=== PATIENT | female | born 1985 | race Caucasian/White ===

== ENCOUNTER 2018-02-20 06:25 | Day surgery (SDC) | payer MEDICAID ==
[2018-02-20] MEDS ORDERED: DOXYCYCLINE HYCLATE 100 MG in DEXTROSE 5%-WATER 250 ML IV ONE (06:45)
[2018-02-20 07:13] LABS: ABSOLUTE BASOPHILS # (AUTO) 0.1 10^3/uL (0.0-0.2); ABSOLUTE EOSINOPHILS # (AUTO) 0.3 10^3/uL (0.0-0.6); ABSOLUTE LYMPHOCYTES (AUTO) 1.9 10^3/uL (0.5-4.7); ABSOLUTE MONOCYTES (AUTO) 0.4 10^3/uL (0.1-1.4); ABSOLUTE NEUT (AUTO) 3.3 10^3/uL (1.7-8.2); BASOPHILS % (AUTO) 0.9 % (0-2); EOSINOPHILS % (AUTO) 5.3 % (0-6); HEMATOCRIT 38.7 % (36.0-47.0); HEMOGLOBIN 13.6 g/dL (12.0-15.5); MEAN CORPUSCULAR HEMOGLOBIN 28.9 pg (27.0-33.4); MEAN CORPUSCULAR HGB CONC 35.3 g/dL (32.0-36.0); MEAN CORPUSCULAR VOLUME 82 fl (80-97); MONOCYTES % (AUTO) 6.6 % (3-13); PLATELET COUNT 307 10^3/uL (150-450); RED BLOOD COUNT 4.73 10^6/uL (3.72-5.28); RED CELL DISTRIBUTION WIDTH 13.7 % (11.5-14.0); SEGMENTED NEUTROPHILS % (AUTO) 55.2 % (42-78); TOTAL CELLS COUNTED % (AUTO) 100 %
[2018-02-20 07:14] LABS: APPEARANCE,URINE CLEAR; BILIRUBIN,URINE NEGATIVE (NEGATIVE); COLOR,URINE YELLOW; GLUCOSE, URINE NEGATIVE (NEGATIVE); KETONES,URINE NEGATIVE (NEGATIVE); LEUKOCYTE ESTERASE,URINE MODERATE (NEGATIVE); NITRITE,URINE NEGATIVE (NEGATIVE); PROTEIN,URINE NEGATIVE (NEGATIVE); URINE SPECIFIC GRAVITY 1.013; UROBILINOGEN,URINE NEGATIVE mg/dL (<2.0)
[2018-02-20] MEDS ORDERED: FENTANYL CITRATE INJ/PF 100 MCG/2 ML AMPUL ONE (09:20)
[2018-02-20] MEDS ORDERED: ONDANSETRON HCL INJ/PF 4 MG/2 ML SDV ONE (09:20)
[2018-02-20] MEDS ORDERED: PROPOFOL INJ 200 MG/20 ML VIAL IV ONE (09:20)
[2018-02-20] MEDS ORDERED: MIDAZOLAM 2 MG/2 ML INJ ONE (09:20)
[2018-02-20] MEDS ORDERED: MORPHINE SULFATE 10 MG/ML INJ IV PRN (09:41)
[2018-02-20] MEDS ORDERED: MEPERIDINE HCL/PF INJ 25 MG/1 ML DISP.SYRIN IV PRN (09:41)
[2018-02-20] MEDS ORDERED: PROMETHAZINE HCL INJ 25 MG/1 ML VIAL IV PRN (09:41)
[2018-02-20] MEDS ORDERED: FENTANYL CITRATE INJ/PF 100 MCG/2 ML AMPUL IV PRN ×3 (09:41)
[2018-02-20] MEDS ORDERED: DIPHENHYDRAMINE HCL 50 MG/ML VIAL IV PRN (09:41)
--- NOTE | 2018-02-20 10:17 | OPERATIVE REPORT E ---
Operative Report NAME: DAKOTA HEARD : 1985 AGE: 32Y DATE OF SURGERY: 02/20/2018 ROOM: PREOPERATIVE DIAGNOSIS: Incomplete AB. POSTOPERATIVE DIAGNOSIS: Incomplete AB. PROCEDURE: Suction D and C. SURGEON: Andrew HUFFMAN M.D. ESTIMATED BLOOD LOSS: Less than 25 mL. TISSUE REMOVED OR ALTERED: Products of conception. ANESTHESIA: General. DESCRIPTION OF PROCEDURE: The patient was placed in a dorsal lithotomy position, prepped and draped in sterile fashion. Speculum was placed. Cervix was visualized and grasped with a single-toothed tenaculum. The uterus sounded to a depth of 9 cm. The os was opened sufficiently to accept a #8 suction catheter. Suction curettage was performed followed by sharp curettage followed by repeat suction. The single-toothed tenaculum was then removed and hemostasis was noted. Speculum was removed and the procedure was terminated. She was taken to recovery room in good condition. DICTATING PHYSICIAN: Andrew HUFFMAN M.D. [id number] PHY#: [id number] [id number] JOB#: [id number] ACCT: [id number] cc:Andrew HUFFMAN M.D. >
[2018-02-20] MEDS ORDERED: OXYCODONE-ACETAMINOPHEN 5-325 MG TABLET ONE (10:52)
[2018-02-20] MEDS ORDERED: OXYCODONE-ACETAMINOPHEN 5-325 MG TABLET PO PRN (10:54)
[2018-02-20] MEDS ORDERED: ONDANSETRON 4 MG TAB.RAPDIS PO PRN (10:54)
[2018-02-20 13:07] VITALS: BP 102/72
[2018-02-20] MEDS ORDERED: IBUPROFEN 800 MG TABLET PO SCH (14:00)
== END 2018-02-20 11:55 | disposition home or self-care (01) ==
LOC: OROUT 06:25
PROVIDERS: ATTEND Obstetrics & Gynecology Gynecology
DX: O03.4 Incomplete spontaneous abortion without complication (principal); Z79.891 Long term (current) use of opiate analgesic; Z79.1 Long term (current) use of non-steroidal anti-inflammatories (NSAID)
CPT/HCPCS: 36415; 85025; 81001; 88305 ×2; 59812; J2250; J3490; J3010; J2405; J7060; J2704; 1965

== ENCOUNTER 2019-07-02 05:10 | Inpatient (IN) | payer MEDICAID ==
[2019-06-30 15:27] LABS: APPEARANCE,URINE CLEAR; BILIRUBIN,URINE NEGATIVE (NEGATIVE); COLOR,URINE STRAW; GLUCOSE, URINE NEGATIVE (NEGATIVE); KETONES,URINE NEGATIVE (NEGATIVE); LEUKOCYTE ESTERASE,URINE NEGATIVE (NEGATIVE); NITRITE,URINE NEGATIVE (NEGATIVE); PROTEIN,URINE NEGATIVE (NEGATIVE); URINE SPECIFIC GRAVITY 1.003; UROBILINOGEN,URINE NEGATIVE mg/dL (<2.0)
[2019-06-30 15:42] LABS: URINE AMPHETAMINES SCREEN NEGATIVE; URINE BARBITURATES SCREEN NEGATIVE; URINE BENZODIAZEPINES SCREEN NEGATIVE; URINE COCAINE SCREEN NEGATIVE; URINE MARIJUANA (THC) SCREEN NEGATIVE; URINE METHADONE SCREEN NEGATIVE; URINE PHENCYCLIDINE SCREEN NEGATIVE
[2019-06-30 15:43] LABS: ABSOLUTE BASOPHILS # (AUTO) 0.1 10^3/uL (0.0-0.2); ABSOLUTE EOSINOPHILS # (AUTO) 0.1 10^3/uL (0.0-0.6); ABSOLUTE LYMPHOCYTES (AUTO) 2.3 10^3/uL (0.5-4.7); ABSOLUTE MONOCYTES (AUTO) 0.6 10^3/uL (0.1-1.4); ABSOLUTE NEUT (AUTO) 4.8 10^3/uL (1.7-8.2); BASOPHILS % (AUTO) 0.8 % (0-2); EOSINOPHILS % (AUTO) 0.8 % (0-6); HEMATOCRIT 37.6 % (36.0-47.0); HEMOGLOBIN 13.7 g/dL (12.0-15.5); LYMPHOCYTES % (AUTO) 29.2 % (13-45); MEAN CORPUSCULAR HEMOGLOBIN 31.8 pg (27.0-33.4); MEAN CORPUSCULAR HGB CONC 36.5 g/dL (32.0-36.0); MEAN CORPUSCULAR VOLUME 87 fl (80-97); MONOCYTES % (AUTO) 7.5 % (3-13); PLATELET COUNT 205 10^3/uL (150-450); RED BLOOD COUNT 4.31 10^6/uL (3.72-5.28); RED CELL DISTRIBUTION WIDTH 14.2 % (11.5-14.0); SEGMENTED NEUTROPHILS % (AUTO) 61.7 % (42-78); TOTAL CELLS COUNTED % (AUTO) 100 %; WHITE BLOOD COUNT 7.8 10^3/uL (4.0-10.5)
[~2019-07-02 05:10] MED LIST: CEFAZOLIN SODIUM 2 GM in DEXTROSE 5%-WATER 100 ML IV PRN
[2019-07-02] MEDS ORDERED: RINGERS SOLUTION,LACTATED 1,000 ML IV PRN ×2 (05:48→09:07)
[2019-07-02] MEDS ORDERED: RINGERS SOLUTION,LACTATED 1,000 ML IV ONE (06:00)
[2019-07-02] MEDS ORDERED: PROPOFOL INJ 200 MG/20 ML VIAL IV ONE (07:49)
[2019-07-02] MEDS ORDERED: EPHEDRINE SULFATE INJ 50 MG/1 ML AMPULE ONE (07:49)
[2019-07-02] MEDS ORDERED: MIDAZOLAM 2 MG/2 ML INJ ONE (07:49)
[2019-07-02] MEDS ORDERED: OXYTOCIN/NORMAL SALINE 20 UNIT/1,000 ML RTUINJ ONE ×2 (07:50→09:23)
[2019-07-02] MEDS ORDERED: PROMETHAZINE HCL INJ 25 MG/1 ML VIAL IV PRN ×3 (08:24→09:07)
[2019-07-02] MEDS ORDERED: MEPERIDINE HCL/PF INJ 25 MG/1 ML DISP.SYRIN IV PRN (08:24)
[2019-07-02] MEDS ORDERED: OXYCODONE-ACETAMINOPHEN 5-325 MG TABLET PO PRN ×3 (08:24→09:07)
[2019-07-02] MEDS ORDERED: DIPHENHYDRAMINE HCL 50 MG/ML VIAL IV PRN (08:24)
[2019-07-02] MEDS ORDERED: FENTANYL CITRATE INJ/PF 100 MCG/2 ML AMPUL IV PRN ×3 (08:24)
[2019-07-02] MEDS ORDERED: OXYTOCIN/NORMAL SALINE 20 UNIT/1,000 ML RTUINJ IV PRN (09:07)
[2019-07-02] MEDS ORDERED: ACETAMINOPHEN 1,000 MG/100 ML RTUPB IV PRN (09:07)
[2019-07-02] MEDS ORDERED: MEASLES,MUMPS&RUBELLA VACC/PF 0.5 ML VIAL SUBCUT PRN (09:07)
[2019-07-02] MEDS ORDERED: HYDROMORPHONE HCL INJ/PF 2 MG/ML AMPULE IV PRN (09:07)
[2019-07-02] MEDS ORDERED: SIMETHICONE 80 MG TAB.CHEW PO PRN (09:07)
[2019-07-02] MEDS ORDERED: DIPH/PERTUSS(ACELL)/TETANUS VAC/PF 0.5 ML SYR (>=10YO) IM PRN (09:07)
[2019-07-02] MEDS ORDERED: ACETAMINOPHEN 325 MG TABLET PO PRN (09:07)
--- NOTE | 2019-07-02 09:20 | Operative Report ---
Operative Report DATE OF SURGERY: 07/02/19 PREOPERATIVE DIAGNOSIS: Repeat to prevent risk of uterine rupture POSTOPERATIVE DIAGNOSIS: Same OPERATION: Repeat via low transverse uterine incision SURGEON: BERNARD EASTMAN ANESTHESIA: Spinal TISSUE REMOVED OR ALTERED: Placenta COMPLICATIONS: None ESTIMATED BLOOD LOSS: 250 cc INTRAOPERATIVE FINDINGS: Viable infant crying at delivery, normal uterus tubes and ovaries PROCEDURE: Patient was taken to the OR and placed in supine position after her spinal anesthesia. She is prepared and draped in sterile fashion. Parr was placed for drainage of the bladder. Low transverse incision was made and carried down the level of the fascia. The fascial incision was made with knife and extended bilaterally with curved Stephens scissors. The fascia was off the rectus muscles using sharp and blunt dissection. The rectus muscles are in the midline. The peritoneum was entered without incident. Bladder blade was placed in uterine segment was identified. A low transverse incision was made creating a bladder flap. Bladder blade was placed low transverse uterine incision was made with the knife and extended with fingertips. The baby was delivered with some fundal pressure. Mouth and nose were suctioned free. The cord is doubly clamped and cut. Baby is passed off to the sr account executive in attendance. The placenta was manually extracted with trailing membranes. The uterus was externalized wrapped in a moist lap sponge. Uterine contents wiped free. Uterus was closed with a running locking layer of 0 chromic suture using the second layer to imbricate the first completing a double layer closure of the uterus. The serosa was closed with a running 2-0 chromic stitch. The pelvis was irrigated and suctioned free of fluid the uterus was replaced in the abdomen. The abdominal wall peritoneum was closed with running 2-0 chromic stitch. Fascia was closed with a running 0 Vicryl in 2 segments. Jazmine's layer was brought together with 0 plain gut stitch and the skin was closed with running subcuticular 4-0 undyed Vicryl stitch. The wound was dressed mother and baby did well.
[2019-07-02] MEDS: FENTANYL CITRATE INJ/PF 100 MCG/2 ML AMPUL ONE ×3 (09:56→10:06)
[2019-07-02] MEDS ORDERED: FENTANYL CITRATE INJ/PF 100 MCG/2 ML AMPUL ONE (10:34)
[2019-07-02] MEDS: KETOROLAC TROMETHAMINE INJ/PF 30 MG/1 ML SDV IV SCH ×3 (11:17→17:40)
[2019-07-02] MEDS: OXYCODONE-ACETAMINOPHEN 5-325 MG TABLET PO PRN ×3 (14:26→23:51)
[2019-07-02] MEDS: DOCUSATE SODIUM 100 MG CAPSULE PO SCH (17:41)
[2019-07-03] MEDS: KETOROLAC TROMETHAMINE INJ/PF 30 MG/1 ML SDV IV SCH (02:02)
[2019-07-03] MEDS: OXYCODONE-ACETAMINOPHEN 5-325 MG TABLET PO PRN ×4 (06:24→21:43)
[2019-07-03 07:23] LABS: HEMATOCRIT 32.8 % (36.0-47.0); MEAN CORPUSCULAR HEMOGLOBIN 32.1 pg (27.0-33.4); MEAN CORPUSCULAR HGB CONC 36.4 g/dL (32.0-36.0); MEAN CORPUSCULAR VOLUME 88 fl (80-97); PLATELET COUNT 180 10^3/uL (150-450); RED BLOOD COUNT 3.73 10^6/uL (3.72-5.28); RED CELL DISTRIBUTION WIDTH 14.4 % (11.5-14.0); WHITE BLOOD COUNT 9.5 10^3/uL (4.0-10.5)
[2019-07-03] MEDS: PRENATAL VITAMIN W DHA CAPSULE PO SCH (09:45)
[2019-07-03] MEDS: DOCUSATE SODIUM 100 MG CAPSULE PO SCH ×2 (09:45→17:50)
--- NOTE | 2019-07-03 10:19 | PDOC PROGRESS REPORT ---
Subjective-OB Progress Note for:: 07/03/19 Subjective: Pt doing well, no concerns. She reports light bleeding reg diet with + flatus and voiding without difficulty. Physical Exam (OB) Vital Signs: Temp Pulse Resp BP Pulse Ox 98.0 F 84 16 103/70 99 07/03/19 07:47 07/03/19 07:47 07/03/19 07:47 07/03/19 07:47 07/03/19 07:47 Intake & Output 07/02/19 07/03/19 07/04/19 06:59 06:59 06:59 Intake Total 1000 4106 Output Total 2763 Balance 1000 1343 Weight 189.6 kg - Dressing Removed: No Closure Type: opsite - Lochia Lochia Amount: Scant < 10 ml Lochia Color: Rubra/Red - Abdomen Description: Tender, Soft Fundal Description: Firm, Midline Fundal Height: u/u - u/2 Objective-Diagnostic Laboratory: 07/03/19 06:50 07/03/19 06:50 WBC 9.5 RBC 3.73 Hgb 12.0 Hct 32.8 L MCV 88 MCH 32.1 MCHC 36.4 H RDW 14.4 H Plt Count 180 Assessment and Plan(PN) - Assessment and Plan (1) S/P repeat low transverse Is this a current diagnosis for this admission?: Yes (2) Morbid obesity Is this a current diagnosis for this admission?: Yes - Time Spent with Patient Time with patient: Less than 15 minutes Medications reviewed and adjusted accordingly: Yes - Disposition Anticipated Discharge: Home Within: within 24 hours
[2019-07-03] MEDS: IBUPROFEN 800 MG TABLET PO SCH ×2 (11:04→17:50)
[2019-07-04] MEDS: IBUPROFEN 800 MG TABLET PO SCH ×3 (00:09→12:11)
[2019-07-04] MEDS: OXYCODONE-ACETAMINOPHEN 5-325 MG TABLET PO PRN ×2 (04:01→09:06)
[2019-07-04] MEDS: PRENATAL VITAMIN W DHA CAPSULE PO SCH (09:02)
[2019-07-04] MEDS: DOCUSATE SODIUM 100 MG CAPSULE PO SCH (09:02)
--- NOTE | 2019-07-04 09:46 | PDOC DISCHARGE SUMMARY ---
Impression - Admit/DC Date/PCP Admission Date/Primary Care Provider: 07/02/19 05:10 BERLIN LLANOS DO Discharge Date: 07/04/19 - Discharge Diagnosis (1) S/P repeat low transverse Is this a current diagnosis for this admission?: Yes (2) Normal course Is this a current diagnosis for this admission?: Yes - Additional Information Resuscitation Status: Full Code Discharge Diet: Regular Discharge Activity: Balance Activity w/Rest, No Lifting Over 10 Pounds, No Lifting/Push/Pulling, Pelvic Rest, No tub bath Referrals: BERLIN LLANOS DO [Primary Care Provider] - Prescriptions: Oxycodone HCl/Acetaminophen [Percocet 5-325 mg Tablet] 1 tab PO Q4HP PRN #30 tablet PRN Reason: For Pain Scale 3-5 Ibuprofen [Motrin 800 mg Tablet] 800 mg PO Q8HP PRN #60 tablet PRN Reason: For Pain Scale 1-3 Home Medications: Ibuprofen [Motrin 800 mg Tablet] 800 mg PO Q8HP PRN #60 tablet 07/04/19 Oxycodone HCl/Acetaminophen [Percocet 5-325 mg Tablet] 1 tab PO Q4HP PRN #30 tablet 07/04/19 HPI Reason(s) for Admission: Ceasarean Section-Repeat Procedures: None Intrapartum Procedure(s): : Low Cervical, Transverse Results Laboratory Results: WBC 9.5 10^3/uL (4.0-10.5) 07/03/19 06:50 RBC 3.73 10^6/uL (3.72-5.28) 07/03/19 06:50 Hgb 12.0 g/dL (12.0-15.5) 07/03/19 06:50 Hct 32.8 % (36.0-47.0) L 07/03/19 06:50 MCV 88 fl (80-97) 07/03/19 06:50 MCH 32.1 pg (27.0-33.4) 07/03/19 06:50 MCHC 36.4 g/dL (32.0-36.0) H 07/03/19 06:50 RDW 14.4 % (11.5-14.0) H 07/03/19 06:50 Plt Count 180 10^3/uL (150-450) 07/03/19 06:50 Lymph % (Auto) 29.2 % (13-45) 06/30/19 14:40 [place] % (Auto) 7.5 % (3-13) 06/30/19 14:40 Eos % (Auto) 0.8 % (0-6) 06/30/19 14:40 Baso % (Auto) 0.8 % (0-2) 06/30/19 14:40 Absolute Neuts (auto) 4.8 10^3/uL (1.7-8.2) 06/30/19 14:40 Absolute Lymphs (auto) 2.3 10^3/uL (0.5-4.7) 06/30/19 14:40 Absolute Monos (auto) 0.6 10^3/uL (0.1-1.4) 06/30/19 14:40 Absolute Eos (auto) 0.1 10^3/uL (0.0-0.6) 06/30/19 14:40 Absolute Basos (auto) 0.1 10^3/uL (0.0-0.2) 06/30/19 14:40 Seg Neutrophils % 61.7 % (42-78) 06/30/19 14:40 Urine Color STRAW 06/30/19 14:35 Urine Appearance CLEAR 06/30/19 14:35 Urine pH 6.0 (5.0-9.0) 06/30/19 14:35 Ur Specific [place] 1.003 06/30/19 14:35 Urine Protein NEGATIVE mg/dL (NEGATIVE) 06/30/19 14:35 Urine Glucose (UA) NEGATIVE mg/dL (NEGATIVE) 06/30/19 14:35 Urine Ketones NEGATIVE mg/dL (NEGATIVE) 06/30/19 14:35 Urine Blood NEGATIVE (NEGATIVE) 06/30/19 14:35 Urine Nitrite NEGATIVE (NEGATIVE) 06/30/19 14:35 Urine Bilirubin NEGATIVE (NEGATIVE) 06/30/19 14:35 Urine Urobilinogen NEGATIVE mg/dL (<2.0) 06/30/19 14:35 Ur Leukocyte Esterase NEGATIVE (NEGATIVE) 06/30/19 14:35 Urine WBC (Auto) 1 /HPF 06/30/19 14:35 Urine RBC (Auto) 1 /HPF 06/30/19 14:35 Urine Bacteria (Auto) TRACE /HPF 06/30/19 14:35 Squamous Epi Cells Auto 5 /HPF 06/30/19 14:35 Urine Mucus (Auto) RARE /LPF 06/30/19 14:35 Urine Ascorbic Acid NEGATIVE (NEGATIVE) 06/30/19 14:35 Urine Opiates Screen NEGATIVE 06/30/19 14:35 Urine Methadone Screen NEGATIVE 06/30/19 14:35 Ur Barbiturates Screen NEGATIVE 06/30/19 14:35 Ur Phencyclidine Scrn NEGATIVE 06/30/19 14:35 Ur Amphetamines Screen NEGATIVE 06/30/19 14:35 U Benzodiazepines Scrn NEGATIVE 06/30/19 14:35 Urine Cocaine Screen NEGATIVE 06/30/19 14:35 U Marijuana (THC) Screen NEGATIVE 06/30/19 14:35 Blood Type A POSITIVE 07/01/19 13:04 Antibody Screen NEGATIVE 07/01/19 13:04 Plan Plan of Treatment: f/u at [facility] 07/09/19 Time Spent: Less than 30 Minutes
[2019-07-04 10:44] VITALS: BP 117/69
== END 2019-07-04 13:53 | disposition home or self-care (01) | DRG 788 ==
LOC: 2S 05:10
PROVIDERS: ADMIT Obstetrics & Gynecology; ATTEND Obstetrics & Gynecology
PROC: 10D00Z1 Extraction of Products of Conception, Low, Open Approach (ICD-10-PCS; principal; 2019-07-02 07:45)
DX: O34.211 Maternal care for low transverse scar from previous cesarean delivery (principal); N85.8 Other specified noninflammatory disorders of uterus; Z3A.39 39 weeks gestation of pregnancy; Z37.0 Single live birth
CPT/HCPCS: 1961; 36415; 59025; 80307; 81001; 85025; 85027; 86850; 86900; 86901; 94799; C1713; J0690; J1170; J1885; J2250; J2590; J2704; J3010; J3490; J7060; J7120